=== PATIENT | female | born 1965 | race Caucasian/White ===

== ENCOUNTER → 2018-06-24 | Outpatient (CLI) | payer BC | LOC: MC.RAD 10:55 | DX: Z12.31 Encounter for screening mammogram for malignant neoplasm of breast (principal); R92.0 Mammographic microcalcification found on diagnostic imaging of breast ==

== ENCOUNTER → 2018-06-27 | Outpatient (CLI) | payer BC | LOC: MC.RAD 09:00 | DX: R92.0 Mammographic microcalcification found on diagnostic imaging of breast (principal) ==

== ENCOUNTER → 2019-05-29 | Outpatient (CLI) | payer BC | LOC: ZCOL.LAB 17:17 | DX: R07.9 Chest pain, unspecified (principal) ==

== ENCOUNTER 2020-07-12 12:34 | Day surgery (SDC) | payer BC ==
[2020-07-12] VITALS (9 sets, daily range): BP systolic 115–149; BP diastolic 67–80; PULSE 78–89; TEMP 97.9–98.1
[~2020-07-12] VITALS: Ht 165.1 cm; Wt 78.0 kg
[2020-07-12] MEDS ORDERED: CRESTOR 10MG10 MG PO (14:00)
[2020-07-12] MEDS ORDERED: PRINIVIL10 MG PO (14:00)
[2020-07-12] MEDS ORDERED: TYLENOL 500MG500 MG PO (14:01)
[2020-07-12] MEDS ORDERED: PRILOSEC 20MG20 MG PO (14:02)
--- NOTE | 2020-07-12 17:30 | NUR ---
Patient arrives via bed to room 220 from PACU. Report from JAQUELINE Paz. Incision site checked by both RNs, patient A&O, reports pain is "3/10" and improved. Denies nausea at this time. VS obtained. Jo catheter draining hazy yellow urine. Vaginal packing in place, peripad clean. Patient oriented to room and plan of care. Denies questions. at bedside, call light in reach.
[2020-07-13] VITALS: BP 117/66; PULSE 74; TEMP 97.6
[2020-07-13 04:00] VITALS: BP 111/74; PULSE 81; TEMP 97.9
[2020-07-13 07:45] VITALS: BP 104/58; PULSE 80; TEMP 97.3
--- NOTE | 2020-07-13 10:36 | NUR ---
Initial visit attempt; Patient indisposed, [employer] left card informing patient of the availability of spiritual care at [place].
[2020-07-13 16:30] VITALS: BP 115/65; PULSE 79; TEMP 97.8
--- NOTE | 2020-07-13 18:16 | NUR ---
1715 DISCHARGE INSTRUCTIONS REVIEWED WITH PATIENT. PATIENT VERBALIZED UNDERSTANDING. PRESCRIPTION GIVEN. PATIENT TO NOTIFY THIS RN WHEN READY TO LEAVE. 1800 ALL PERSONAL BELONGINGS GATHERED FROM PATIENT ROOM. PATIENT LEFT AMBULATORY AND IN NO APPARENT DISTRESS. PATIENT ACCOMPANIED BY SPOUSE AND THIS RN.
== END 2020-07-13 18:00 | disposition home or self-care (01) ==
LOC: OB 12:34 → SDCO 12:34 → OB 18:15 → SDCO 07-13 18:00
DX: N36.42 Intrinsic sphincter deficiency (ISD) (principal); N39.46 Mixed incontinence; R35.0 Frequency of micturition; I10 Essential (primary) hypertension; K21.9 Gastro-esophageal reflux disease without esophagitis; E78.00 Pure hypercholesterolemia, unspecified; Z79.899 Other long term (current) drug therapy
CPT/HCPCS: OP; C1762; J0690; J1100; J1885; J2405; J2550; J2704; J2765; J3010; J7120

== ENCOUNTER → 2020-12-08 | Outpatient (CLI) | payer BC ==
[~2020-12-08] MED LIST: CRESTOR 10MG10 MG PO; PRILOSEC 20MG20 MG PO; PRINIVIL10 MG PO; TYLENOL 500MG500 MG PO
== END ==
LOC: MC.RAD 16:30
DX: Z12.31 Encounter for screening mammogram for malignant neoplasm of breast (principal)

== ENCOUNTER → 2023-03-20 | Outpatient (CLI) | payer BC | LOC: MC.RAD 08:30 | DX: Z12.31 Encounter for screening mammogram for malignant neoplasm of breast (principal) ==